=== PATIENT | female | born 1935 | race Caucasian/White ===

== ENCOUNTER 2021-06-17 21:43 | Emergency (ER) | payer MEDICARE ==
[~2021-06-17] VITALS: Ht 170.2 cm; Wt 70.5 kg
--- NOTE | 2021-06-17 22:07 | PHYS DOC ---
Adult General Chief Complaint Chief Complaint: ANXIETY/PANIC ATTACK HPI HPI Patient is an 86-year-old female who presents with concerns for anxiety/panic attack and high blood pressure. States over the last couple of days she has felt anxious and she is already claustrophobic. States that she gets this way about every month or so. States she does take good care of her self and takes her medications. States her only issue is atrial fibrillation, on Eliquis and diltiazem which she takes on time. Denies any recent travel, traumas, illnesses, fevers, chest pain, shortness of breath, abdominal pain, nausea, vomiting, diarrhea. Denies any dysuria, hematuria, blood in the stool. Denies any numbness/weakness/tingling. States he is eating and drinking normally for her. States he is making urine and stool normally for her. Review of Systems Review of Systems Review of systems otherwise unremarkable except noted in HPI Physical Exam Physical Exam Constitutional: Well developed, well nourished, no acute distress, non-toxic appearance. [] HENT: Normocephalic, atraumatic, bilateral external ears normal, oropharynx moist, no oral exudates, nose normal. [] Eyes: PERRLA, EOMI, conjunctiva normal, no discharge. [] Neck: Normal range of motion, no tenderness, supple, no stridor. [] Cardiovascular:Heart rate regular rhythm, no murmur [] Lungs & Thorax: Bilateral breath sounds clear to auscultation [] Abdomen: Bowel sounds normal, soft, no tenderness, no masses, no pulsatile alo s. [] Skin: Warm, dry, no erythema, no rash. [] Back: No tenderness, no CVA tenderness. [] Extremities: No tenderness, no cyanosis, no clubbing, ROM intact, no edema. [] Neurologic: Alert and oriented X 3, normal motor function, normal sensory function, no focal deficits noted. [] Psychologic: Affect normal, judgement normal, mood normal. [] EKG EKG [] Radiology/Procedures Radiology/Procedures [] Heart Score C/O Chest Pain: No Risk Factors: Risk Factors: DM, Current or recent (<one month) smoker, HTN, HLP, family history of CAD, obesity. Risk Scores: Risk Factors: DM, Current or recent (<one month) smoker, HTN, HLP, family history of CAD, obesity. Course & Med Decision Making Course & Med Decision Making Patient is an 86-year-old female who presents with anxiety and panic attack and concern for hypertension Vital signs not concerning. Physical exam noted above. EKG with a rate of 61, QRS of 78, QTc 398, no STEMI, irregular rhythm/A. fib. Chest x-ray not concerning. Ativan given. On reassessment patient stated she was feeling much better, with resolution of symptoms. Advised to follow-up first thing Saturday morning to update primary care physician on ED visit and set up a follow-up. Gave strict return precautions to the ED. Patient grateful, verbalized understanding and agreed with plan of discharge. Dragon Disclaimer Dragon Disclaimer This electronic medical record was generated, in whole or in part, using a voice recognition dictation system. Departure Departure: Impression: Primary Impression: Anxiety Additional Impression: Panic attack Disposition: HOME / SELF CARE / HOMELESS Condition: GOOD Referrals: COLBY MARTI MD (PCP) Patient Instructions: Anxiety and Panic Attacks Additional Instructions: Thank you for coming into the emergency department tonight and allowing us to take care of you. Please read the attached information carefully to go over things we discussed. It is very important that you follow-up with your primary care physician on Saturday to update on your ED visits, your anxiety and set up a follow-up appointment as soon as possible. Please come back with new or concerning symptoms as discussed. Problem Qualifiers LOIS ARORA MD Jun 17, 2021 22:07
[2021-06-17] MEDS ORDERED: LORazepam 1 MG TABLET PO ONE (22:45)
--- NOTE | 2021-06-17 23:07 | EKG ---
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
[2021-06-17 23:41] LABS: BACTERIA,URINE 0 /HPF (0-FEW); BILIRUBIN,URINE NEG (NEG); CLARITY,URINE CLEAR; COLOR,URINE YELLOW; GLUCOSE,URINE NEG (NEG); NITRITE,URINE NEG (NEG); RBC,URINE OCC /HPF (0-2); SQUAMOUS EPITHELIAL CELL,UR OCC /LPF; UROBILINOGEN,URINE 0.2 mg/dL (0.2 mg/dL)
--- NOTE | 2021-06-17 23:56 | RAD ---
XR CHEST 1V Clinical History: Reason: cardiac w/u, anxiety / Spl. Instructions: / History: Technique: AP view of the chest was obtained at 06/17/2021 10:41 PM. Comparison: None. Findings: The heart is moderately enlarged. The pulmonary vasculature is normal. The lungs and pleural margins are clear. Impression: Moderate cardiomegaly. Electronically signed by: Earl Du III, MD (06/17/2021 11:53 PM) [facility]
[2021-06-18 00:07] VITALS: BP 130/65
== END 2021-06-18 00:24 | disposition home or self-care (01) ==
LOC: ER 21:43
DX: F41.9 Anxiety disorder, unspecified (principal); I10 Essential (primary) hypertension; I48.91 Unspecified atrial fibrillation; Z79.01 Long term (current) use of anticoagulants
CPT/HCPCS: 36415; 71045; 81001; 84484; 93005; 99284; P9612

== ENCOUNTER 2021-06-21 22:16 | Emergency (ER) | payer MEDICARE ==
[~2021-06-21] VITALS: Ht 175.3 cm; Wt 65.7 kg
--- NOTE | 2021-06-21 22:22 | PHYS DOC ---
Past History Past Medical History: Anxiety, Arthritis, Constipation, Dementia Past Medical History Insomnia Past Surgical History: Knee Replacement, Other Additional Past Surgical Histo: R ELBOW, BACK SX Alcohol Use: None General Adult HPI: HPI: ";.. I could not get to sleep.. when it gets dark.. I start getting agitated... feel like I got to do something.. worried...".. ".. My heart gets fast...".. Pt. . " I talked to her on the phone .. I brought her in..she was having really pressured speech. Sounded scared.. I know her from [place]..." " The sql database developer seen her tonight.. and they did vital on her... and said she should come to the ED tonight.. .. they did nt want to transport her.. " Friend Patient is a 86 year old female who presents with above hx and agitation and insomnia. Patient states symptoms have been coming on later in the night. Patient denies any changes in meds. No history of trauma. No specific ill contacts. No fever or chills. No suicidal ideation. No homicidal ideation. Does have a history of arthritis, hypertension and anxiety.. Pt. follows with Dr. Ochoa Review of Systems: Review of Systems: Constitutional: Denies fever or chills Eyes: Denies change in visual acuity HENT: Denies nasal congestion or sore throat Respiratory: Denies cough or shortness of breath Cardiovascular: Denies chest pain or edema GI: Denies abdominal pain, nausea, vomiting, bloody stools or diarrhea : Denies dysuria Musculoskeletal: Denies back pain or joint pain Integument: Denies rash Neurologic: Denies headache, focal weakness or sensory changes Endocrine: Denies polyuria or polydipsia Lymphatic: Denies swollen glands Psychiatric: Complains of anxiety Family History: Family History: Noncontributory to presentation Current Medications: Current Meds: See nursing for home meds Allergies: Allergies: Allergies Coded Allergies Type Severity Reaction Last Updated Verified No Known Drug Allergies 06/17/21 No Physical Exam: PE: Constitutional: , no acute distress, non-toxic appearance. [] HENT: Normocephalic, atraumatic, bilateral external ears normal, oropharynx moist, no oral exudates, nose normal. [] Eyes: PERRLA, EOMI, conjunctiva normal, no discharge. Glasses Neck: Normal range of motion, no tenderness, supple, no stridor. [] Cardiovascular:Heart rate regular rhythm, no murmur [] PMI slightly to the left Lungs & Thorax: Bilateral breath sounds equal apex auscultation [] Abdomen: Bowel sounds normal, soft, no tenderness, no masses, no pulsatile mas ses. [] Skin: Warm, dry, no erythema, no rash. Poor turgor Back: No tenderness, no CVA tenderness. Kyphosis scoliosis. Lumbar sacral scar Extremities: No tenderness, no cyanosis, no clubbing, ROM intact, no edema. Arthritic changes. Bilateral knee scars. Right elbow scar Neurologic: Alert and oriented X 3, moves all extremities on request, does appear to have distal sensory no focal deficits noted. [] Psychologic: Affect anxious, judgement normal, mood normal. [] EKG: EKG: My interpretation EKG shows a rhythm at 60 bpm. No obvious P waves. Does have some anterior septal changes. But no findings acute STEMI of contralateral changes. [Time of EKG is 2301 hrs. My interpretation second EKG shows a sinus rhythm at 61 bpm. No acute morphology change between the 2 EKGs. Does have a regular rhythm. No P waves appreciated. Abnormal EKG but no findings of acute STEMI or contralateral changes. Time of EKG is 0050 Radiology/Procedures: Radiology/Procedures: [][place] [address] IMAGING REPORT Signed PATIENT: GALILEO BELTRAN ACCOUNT: [id number] : 1935 LOCATION: ER AGE: 86 SEX: F EXAM STATUS: REG ER ORD. PHYSICIAN: DOYLE RODGERS MD REASON: tachycardia, agitation PROCEDURE: PORTABLE CHEST 1V XR CHEST 1V Clinical History: Reason: tachycardia, agitation / Spl. Instructions: / History: Technique: AP view of the chest was obtained at 06/21/2021 10:56 PM. Comparison: June 17, 2021. Findings: The heart is moderately enlarged. The pulmonary vasculature is normal. The lungs and pleural margins are clear. Impression: Cardiomegaly. Stable appearance of the chest. Electronically signed by: Je Serna III, MD (06/21/2021 11:54 PM) [facility] DICTATED AND SIGNED BY: JE SERNA III, MD DATE: 06/21/21 2994 CC: DOYLE RODGERS MD; COLBY OCHOA MD ~MTH0 0 Heart Score: C/O Chest Pain: No Risk Factors: Risk Factors: DM, Current or recent (<one month) smoker, HTN, HLP, family history of CAD, obesity. Risk Scores: Score 0 - 3: 2.5% MACE over next 6 weeks - Discharge Home Score 4 - 6: 20.3% MACE over next 6 weeks - Admit for Clinical Observation Score 7 - 10: 72.7% MACE over next 6 weeks - Early Invasive Strategies Course & Med Decision Making: Course & Med Decision Making Pertinent Labs and Imaging studies reviewed. (See chart for details) Keep follow up with primary Discuss use of anti - anxiety meds and use insomnia meds. Patient follow-up primary care. Patient return if any concerns. Impression: 1. Agitiation 2. Sundowning behavior 3. Hypertension [] Dragon Disclaimer: Dragon Disclaimer: This electronic medical record was generated, in whole or in part, using a voice recognition dictation system. Departure Departure: Referrals: COLBY OCHOA MD (PCP) Dragfaby Disclaimer This chart was dictated in whole or in part using Voice Recognition software in a busy, high-work load, and often noisy Emergency Department environment. It may contain unintended and wholly unrecognized errors or omissions. Dragon Disclaimer This chart was dictated in whole or in part using Voice Recognition software in a busy, high-work load, and often noisy Emergency Department environment. It may contain unintended and wholly unrecognized errors or omissions. DOYLE RODGERS MD Jun 21, 2021 22:22
--- NOTE | 2021-06-21 23:22 | EKG ---
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
[2021-06-21] MEDS ORDERED: IV RINGERS SOLUTION,LACTATED 1,000 ML IV SCH (23:30)
[2021-06-21] MEDS ORDERED: LORazepam 1 MG TABLET PO ONE (23:30)
[2021-06-21 23:40] LABS: BASO # 0.1 x10^3/uL (0.0-0.2); BASO % 1 % (0-3); EOS # 0.2 x10^3/uL (0.0-0.7); EOS % 3 % (0-3); HEMOGLOBIN 12.4 g/dL (12.0-15.5); LYMPH # 2.2 x10^3/uL (1.0-4.8); LYMPH % 30 % (24-48); MEAN CORPUSCULAR HEMOGLOBIN 34 pg (25-35); MEAN CORPUSCULAR HGB CONC 33 g/dL (31-37); MEAN CORPUSCULAR VOLUME 100 fL (79-100); MONO # 0.9 x10^3/uL (0.0-1.1); MONO % 12 % (0-9); NEUT # 4.1 x10^3uL (1.8-7.7); NEUT % 54 % (31-73); PLATELET COUNT 203 x10^3/uL (140-400); RED BLOOD COUNT 3.69 x10^6/uL (3.50-5.40); RED CELL DISTRIBUTION WIDTH 14.1 % (11.5-14.5); WHITE BLOOD COUNT 7.6 x10^3/uL (4.0-11.0)
[2021-06-21 23:50] LABS: CALCIUM 8.6 mg/dL (8.5-10.1); CREATININE 0.6 mg/dL (0.6-1.0)
--- NOTE | 2021-06-21 23:56 | RAD ---
XR CHEST 1V Clinical History: Reason: tachycardia, agitation / Spl. Instructions: / History: Technique: AP view of the chest was obtained at 06/21/2021 10:56 PM. Comparison: June 17, 2021. Findings: The heart is moderately enlarged. The pulmonary vasculature is normal. The lungs and pleural margins are clear. Impression: Cardiomegaly. Stable appearance of the chest. Electronically signed by: Earl Du III, MD (06/21/2021 11:54 PM) [facility]
[2021-06-22 00:05] LABS: ALBUMIN 3.8 g/dL (3.4-5.0); DIRECT BILIRUBIN 0.1 mg/dL (0.0-0.2); MAGNESIUM 2.2 mg/dL (1.8-2.4); TOTAL BILIRUBIN 0.6 mg/dL (0.2-1.0); TOTAL PROTEIN 6.1 g/dL (6.4-8.2)
[2021-06-22 00:06] LABS: POTASSIUM 3.9 mmol/L (3.5-5.1)
[2021-06-22 00:46] LABS: INFLUENZA A PATIENT NEGATIVE (NEGATIVE); INFLUENZA B PATIENT NEGATIVE (NEGATIVE)
[2021-06-22 01:03] LABS: AMPHETAMINE/METHAMPHETAMINE NEG (NEG); BARBITURATES NEG (NEG); BENZODIAZEPINES NEG (NEG); CANNABINOIDS NEG (NEG); COCAINE NEG (NEG); METHADONE NEG (NEG); OPIATES NEG (NEG); PHENCYCLIDINE NEG (NEG)
[2021-06-22 01:05] LABS: BACTERIA,URINE 0 /HPF (0-FEW); BILIRUBIN,URINE NEG (NEG); CLARITY,URINE HAZY; COLOR,URINE YELLOW; GLUCOSE,URINE NEG (NEG); NITRITE,URINE NEG (NEG); RBC,URINE 0 /HPF (0-2); SQUAMOUS EPITHELIAL CELL,UR FEW /LPF; UROBILINOGEN,URINE 0.2 mg/dL (0.2 mg/dL)
--- NOTE | 2021-06-22 01:53 | EKG ---
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
[2021-06-22] MEDS ORDERED: LORazepam 1 MG TABLET PO ONE (02:00)
[2021-06-22 02:26] VITALS: BP 136/60
== END 2021-06-22 02:30 | disposition home or self-care (01) ==
LOC: ER 22:16
DX: R45.1 Restlessness and agitation (principal); F05 Delirium due to known physiological condition; I10 Essential (primary) hypertension; G47.00 Insomnia, unspecified; F41.9 Anxiety disorder, unspecified; M19.90 Unspecified osteoarthritis, unspecified site; F03.90 Unspecified dementia, unspecified severity, without behavioral disturbance, psychotic disturbance, mood disturbance, and anxiety; Z20.822 Contact with and (suspected) exposure to COVID-19
CPT/HCPCS: 36415; 71045; 80048; 80076; 80307; 81001; 82550; 83690; 83735; 83880; 84443; 84484; 85025; 85610; 85730; 87086; 87428; 93005; 96360; 96361; 99284; J7120

== ENCOUNTER 2021-06-24 21:52 | Emergency (ER) | payer MEDICARE ==
[~2021-06-24] VITALS: Ht 167.6 cm; Wt 70.4 kg
[2021-06-24 22:05] VITALS: BP 143/72
--- NOTE | 2021-06-24 22:20 | PHYS DOC ---
Past History Past Medical History: Anxiety, Arthritis, Constipation, Dementia Past Surgical History: Other Additional Past Surgical Histo: R ELBOW, BACK SX Alcohol Use: None Adult General Chief Complaint Chief Complaint: ANXIETY/PANIC ATTACK HPI HPI Patient is a 86-year-old female presents with anxiety/panic attack. States she has been having these occasionally over the last couple of months and was here in the emergency department a couple times for the same thing. States they have an upcoming appointment with her primary care physician but she was at home tonight and had an anxiety attack that lasted several minutes. Denies any recent traumas, travels, illnesses, fevers, chest pain, shortness of breath, abdominal pain, nausea, vomiting, dysuria, hematuria, blood in the stool or diarrhea. Denies any numbness/weakness/tingling. States that here in the emergency department she is feeling much better. Review of Systems Review of Systems Review of systems otherwise unremarkable except noted in HPI Allergies Allergies Allergies Coded Allergies Type Severity Reaction Last Updated Verified No Known Drug Allergies 06/17/21 No Physical Exam Physical Exam Constitutional: Well developed, well nourished, no acute distress, non-toxic appearance, pleasant and cooperative. [] HENT: Normocephalic, atraumatic, bilateral external ears normal, oropharynx moist, no oral exudates, nose normal. [] Eyes: conjunctiva normal, no discharge. [] Neck: Normal range of motion, no tenderness, supple, no stridor. [] Cardiovascular:Heart rate regular rhythm, no murmur [] Lungs & Thorax: Bilateral breath sounds clear to auscultation [] Abdomen: Bowel sounds normal, soft, no tenderness, no masses, no pulsatile masses. [] Skin: Warm, dry, no erythema, no rash. [] Extremities: No tenderness, no cyanosis, no clubbing, ROM intact, no edema. [] Neurologic: Alert and oriented X 3, normal motor function, normal sensory function, able to sit, stand and walk without issue, no focal deficits noted. [] Psychologic: Affect normal, judgement normal, mood normal. [] Current Patient Data Vital Signs Vital Signs Date Time Temp Pulse Resp B/P (MAP) Pulse Ox O2 Delivery O2 Flow Rate FiO2 06/24/21 22:05 97.8 67 20 143/72 (95) 100 Room Air EKG EKG [] Radiology/Procedures Radiology/Procedures [] Heart Score C/O Chest Pain: No Risk Factors: Risk Factors: DM, Current or recent (<one month) smoker, HTN, HLP, family history of CAD, obesity. Risk Scores: Risk Factors: DM, Current or recent (<one month) smoker, HTN, HLP, family history of CAD, obesity. Course & Med Decision Making Course & Med Decision Making Patient is an 86-year-old female presents with anxiety/panic attack that reso lved just before coming to the ED Vital signs not concerning. Physical exam noted above. Patient asymptomatic, pleasant cooperative in the ED with anxiety attack resolved. Given 5 mg diazepam. Discussed symptom control at home and breathing strategies for anxiety. Advised to keep her upcoming appointment with primary care physician to discuss generalized anxiety management as well as rescue for anxiety and panic attacks. Gave strict return precautions to the ED. Family grateful, verbalized understanding and agreed with plan of discharge. Dragon Disclaimer Dragon Disclaimer This electronic medical record was generated, in whole or in part, using a voice recognition dictation system. Departure Departure: Impression: Primary Impression: Panic attack Additional Impression: Anxiety Disposition: 01 HOME / SELF CARE / HOMELESS Condition: STABLE Referrals: COLBY MARTI MD (PCP) Patient Instructions: Anxiety and Panic Attacks Additional Instructions: Thank you for coming into the emergency department tonight and allowing us to take care of you. Please read the attached information carefully to go over things we discussed. As we discussed, if you feel an anxiety attack, do not, sit, breeze in and out deeply and concentrate on your breathing and talk to your spouse for reassurance. Please be sure to stay well-hydrated and eat at least 3 nutritious meals a day and take an One-A-Day vitamin. Please keep your upcoming appointment on Saturday with your primary care physician. Please come back with new or concerning symptoms as we discussed. Problem Qualifiers LOIS ARORA MD Jun 24, 2021 22:20
[2021-06-24] MEDS ORDERED: diazePAM 5 MG TABLET. PO ONE (23:00)
== END 2021-06-24 22:36 | disposition home or self-care (01) ==
LOC: ER 21:52
DX: F41.9 Anxiety disorder, unspecified (principal); M19.90 Unspecified osteoarthritis, unspecified site; F03.90 Unspecified dementia, unspecified severity, without behavioral disturbance, psychotic disturbance, mood disturbance, and anxiety
CPT/HCPCS: 99283